=== PATIENT | male | born 1985 | race Hispanic/Latino ===

== ENCOUNTER 2021-04-28 03:00 | Emergency (ER) | payer SELFPAY ==
--- NOTE | 2021-04-28 03:36 | Emergency Department Report ---
HPI - General Chief Complaint: Hypoglycemia Time Seen by Provider: 04/28/21 03:17 - HPI HPI: Room 24 Patient is a 35-year-old male present with a chief complaint of hyperglycemia. Patient states he remembers taking his dose of Lantus and NovoLog at 19: 00 and then 30 minutes later eating 2 meals which consisted of a "Malian bowl" and burritos." Patient states he did not eat a evening snack. Patient was then found unresponsive in his bed by his mother and EMS was called. EMS arrived and found the patient hypoglycemic at 26. Patient was given 250 mils of D10 with improvement of blood glucose to 105. The patient began to come around while at home in the bed and he was eventually transported to the ED. Here the patient denies complaints. ED Past Medical Hx - Past Medical History Hx Diabetes: Yes (Type I) - Surgical History Past Surgical History?: No - Family History Family history: no significant - Social History Smoking Status: Never Smoker Substance Use Type: None (Denies illicit drug use), Alcohol (Rarely) ED Review of Systems ROS: Stated complaint: LOW BLOOD SUGAR Other details as noted in HPI Constitutional: no symptoms reported Eyes: denies: eye pain ENT: denies: throat pain Respiratory: no symptoms reported Cardiovascular: denies: chest pain Endocrine: see HPI Gastrointestinal: denies: abdominal pain Genitourinary: denies: dysuria Musculoskeletal: denies: back pain Neurological: denies: headache Physical Exam - Physical Exam Vital Signs: Vital Signs 04/28/21 03:14 Temperature 98.2 F Pulse Rate 98 H Respiratory 18 Rate Blood Pressure 159/78 [Left] O2 Sat by Pulse 100 Oximetry Physical Exam: GENERAL: The patient is well-developed well-nourished male lying on stretcher not appearing to be in acute distress. [] HEENT: Normocephalic. Atraumatic. Extraocular motions are intact. Patient has moist mucous membranes. NECK: Supple. Trachea midline CHEST/LUNGS: Clear to auscultation. There is no respiratory distress noted. HEART/CARDIOVASCULAR: Regular. There is no tachycardia. There is no gallop rub or murmur. ABDOMEN: Abdomen is soft, nontender. Patient has normal bowel sounds. There is no abdominal distention. SKIN: There is no rash. There is no edema. There is no diaphoresis. NEURO: The patient is awake, alert, and oriented. The patient is cooperative. The patient has no focal neurologic deficits. The patient has normal speech. GCS 15 MUSCULOSKELETAL: There is no evidence of acute injury. ED Course Vital Signs 04/28/21 03:14 Temperature 98.2 F Pulse Rate 98 H Respiratory 18 Rate Blood Pressure 159/78 [Left] O2 Sat by Pulse 100 Oximetry - Reevaluation(s) Reevaluation #1: 04/28/21 05:25 Accu-Chek 217 ED Medical Decision Making - Lab Data Result diagrams: 04/28/21 03:41 04/28/21 03:41 - Differential Diagnosis Hypoglycemia Critical care attestation.: If time is entered above; I have spent that time in minutes in the direct care of this critically ill patient, excluding procedure time. ED Disposition Clinical Impression: Hypoglycemia Disposition: 01 HOME / SELF CARE / HOMELESS Is pt being admited?: No Does the pt Need Aspirin: No Condition: Stable Instructions: Preventing Hypoglycemia, Hypoglycemia, [id number] Additional Instructions: Return to the emergency department should you develop worsening symptoms, inability to tolerate food or liquids, high fever or any other concerns Referrals: PRIMARY CARE [Primary Care Provider] - 3-5 Days Time of Disposition: 05:25
[2021-04-28 04:01] LABS: Basophils % (Auto) 0.3 % (0.0-1.8); Eosinophils # (Auto) 0.1 K/mm3 (0.0-0.4); Eosinophils % (Auto) 1.3 % (0.0-4.3); Hemoglobin 15.8 gm/dl (11.8-15.2); Lymphocytes # (Auto) 0.9 K/mm3 (1.2-5.4); Lymphocytes % (Auto) 14.7 % (13.4-35.0); Mean Corpuscular HGB Conc 34 % (32-34); Mean Corpuscular Volume 89 fl (84-94); Monocytes # (Auto) 0.5 K/mm3 (0.0-0.8); Monocytes % (Auto) 8.3 % (0.0-7.3); Platelet Count 269 K/mm3 (140-440)
[2021-04-28 04:18] LABS: Blood Urea Nitrogen 11 mg/dL (9-20); Calcium 9.8 mg/dL (8.4-10.2); Hemolysis Index 4
[2021-04-28 04:19] LABS: BUN/Creatinine Ratio 18
[2021-04-28 05:49] VITALS: BP 119/77
== END 2021-04-28 05:47 | disposition home or self-care (01) ==
LOC: ED 03:00
DX: E10.649 Type 1 diabetes mellitus with hypoglycemia without coma (principal); Z72.89 Other problems related to lifestyle; Z79.899 Other long term (current) drug therapy
CPT/HCPCS: 36415; 80048; 82962; 85025; 99283; 99284